=== PATIENT | female | born 1985 | race Caucasian/White ===

== ENCOUNTER 2019-06-08 17:34 | Emergency (ER) | payer MEDICAID ==
[2019-06-08 17:59] VITALS: BP 142/97
--- NOTE | 2019-06-08 18:32 | ER Document Report ---
ED Medical Screen (RME) - General Chief Complaint: Numbness of Arm Stated Complaint: RIGHT SIDE PAIN Time Seen by Provider: 06/08/19 18:23 Mode of Arrival: Ambulatory Information source: Patient Notes: 34-year-old female presents to ED for complaint of numbness in her right arm from her elbow down to her hand that is been off and on for for the last 2 weeks. She states it does wake her up at night at times. Patient denies any falls or injuries. 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 Patient denies smoking drinking or using any drugs. Patient lives with her family. I have greeted and performed a rapid initial assessment of this patient. A comprehensive ED assessment and evaluation of the patient, analysis of test results and completion of medical decision making process will be conducted by an additional ED providers. - Related Data Allergies/Adverse Reactions: loracarbef [From Lorabid] Allergy (Verified 06/08/19 18:33) Sulfa (Sulfonamide Antibiotics) Allergy (Verified 06/08/19 18:33) sulfamethoxazole [From Bactrim] Allergy (Verified 06/08/19 18:33) trimethoprim [From Bactrim] Allergy (Verified 06/08/19 18:33) Physical Exam - Vital signs Vitals: Temp Pulse Resp BP Pulse Ox 99.1 F 99 20 142/97 H 98 06/08/19 17:57 06/08/19 17:57 06/08/19 17:57 06/08/19 17:57 06/08/19 17:57 Course - Vital Signs Vital signs: Temp Pulse Resp BP Pulse Ox 99.1 F 99 20 142/97 H 98 06/08/19 17:57 06/08/19 17:57 06/08/19 17:57 06/08/19 17:57 06/08/19 17:57
== END 2019-06-09 00:11 | disposition left against medical advice (07) ==
LOC: ER 17:34
DX: Z53.21 Procedure and treatment not carried out due to patient leaving prior to being seen by health care provider (principal); R20.0 Anesthesia of skin
CPT/HCPCS: 99281